=== PATIENT | male | born 1995 | race Two or more races ===

== ENCOUNTER 2017-07-11 23:18 | Emergency (ER) | payer OTHER ==
[~2017-07-11] VITALS: Ht 167.6 cm; Wt 54.4 kg
[2017-07-11 23:51] VITALS: BP 118/70
[2017-07-12] MEDS ORDERED: TETRACAINE HCL 0.5% OPTH(EYE) SOLN 4ML LEFTEYE ONE (02:15)
== END 2017-07-12 02:28 | disposition home or self-care (01) ==
LOC: ER 23:18
DX: H57.12 Ocular pain, left eye (principal); H53.142 Visual discomfort, left eye
CPT/HCPCS: 70450